=== PATIENT | female | born 1985 | race Caucasian/White ===

== ENCOUNTER 2020-05-10 20:47 | Emergency (ER) | payer SELFPAY ==
[~2020-05-10] VITALS: Ht 162.6 cm; Wt 67.1 kg
[2020-05-10 20:50] VITALS: BP_SYST 142
--- NOTE | 2020-05-10 20:50 | NUR ---
PT TO BED 5 FOR EVALUATION
--- NOTE | 2020-05-10 20:50 | NUR ---
Received patient to ER w/ c/o left flank pain ongoing since Tuesday but symptoms progressively getting worse over past x5 days. Patient h/o kidney stones x15 years ago. Introduced self to patient, positioned for comfort. continue to monitor. Patient resting quietly. No acute distress noted. Vital signs within normal range.
--- NOTE | 2020-05-10 21:00 | NUR ---
# 20 gauge angiocath placed to RAC. Use of asceptic technique. Opsite placed over site. Blood return noted. Blood for lab drawn from site. Flushed with 10 cc of normal saline. No evidence of infiltration noted. Patient tolerated well.
[2020-05-10] MEDS ORDERED: NACL 0.9% 1,000 ML IV ONE (21:15)
[2020-05-10] MEDS ORDERED: KETOROLAC TROMETHAMINE 30 MG VIAL IVP ONE (21:15)
--- NOTE | 2020-05-10 21:15 | NUR ---
Patient medicated as ordered w/ toradol 30mg ivp to RAC. Will observe for any adverse reaction. Bed to low position sr up, continue to monitor.
[2020-05-10 21:27] LABS: BASOPHILS # (AUTO) 0.1 K/uL (0.0-0.2); BASOPHILS % (AUTO) 0.7 % (0.0-2.0); EOSINOPHILS # (AUTO) 0.2 K/uL (0.0-0.4); EOSINOPHILS % (AUTO) 1.6 % (0.0-4.0); HEMATOCRIT 41.2 % (36-48); HEMOGLOBIN 13.8 g/dL (12.0-16.0); LYMPHOCYTES # (AUTO) 3.1 K/uL (1.0-5.5); LYMPHOCYTES % (AUTO) 25.6 % (20.5-51.5); MEAN CORPUSCULAR HEMOGLOBIN 33 pg (27-31); MEAN CORPUSCULAR HGB CONC 34 % (32-36); MEAN CORPUSCULAR VOLUME 98 fL (79.0-98.0); MONOCYTES # (AUTO) 0.7 K/uL (0.0-1.0); MONOCYTES % (AUTO) 5.8 % (1.7-9.3); NEUTROPHILS % (AUTO) 66.3 % (40.0-70.0); PLATELET COUNT (AUTO) 230 K/uL (130-430); RED BLOOD CELL COUNT(AUTO) 4.19 MIL/uL (4.2-6.2); RED CELL DISTRIBUTION WIDTH 12.5 % (9.0-15.0)
--- NOTE | 2020-05-10 21:33 | NUR ---
Patient transported to radiology via wheelchair, accompanied by surgical services tech.
[2020-05-10 21:44] LABS: BILIRUBIN,URINE NEGATIVE (NEGATIVE); BLOOD, URINE NEGATIVE (NEGATIVE); CLARITY/URINE CLEAR (CLEAR); COLOR,URINE YELLOW (YELLOW); GLUCOSE,URINE NEGATIVE (NEGATIVE); KETONES,URINE 1+ (NEGATIVE); LEUKOCYTE ESTERASE ,URINE NEGATIVE (NEGATIVE); NITRITE, URINE NEGATIVE (NEGATIVE); PH,URINE 5.5 (5.0-8.0); PROTEIN URINE NEGATIVE (NEGATIVE); UROBILINOGEN,URINE 0.2 (0.2-1.0)
--- NOTE | 2020-05-10 21:45 | NUR ---
Returned from radiology, back to [facility].
[2020-05-10 22:18] LABS: POTASSIUM 3.9 mmol/L (3.5-5.1)
[2020-05-10 22:19] LABS: CALCIUM 8.7 mg/dL (8.4-11.0)
[2020-05-10 22:20] LABS: CREATININE 0.68 mg/dL (0.55-1.30); TOTAL BILIRUBIN 0.5 mg/dL (0.0-1.0)
[2020-05-10 22:50] VITALS: BP_SYST 100
--- NOTE | 2020-05-10 22:50 | NUR ---
Patient given written and verbal discharge instructions and verbalizes understanding. DR. DAVID LOPEZ MD discussed with patient the results and treatment provided. Patient in stable condition. ID arm band removed. IV catheter removed intact and dressing applied, no active bleeding. Rx of NORCO, FLOMAX, MOTRIN given. Patient educated on pain management and to follow up with PMD. Pain Scale 0/10. Opportunity for questions provided and answered. Medication side effect fact sheet provided.
== END 2020-05-10 22:50 | disposition home or self-care (01) ==
LOC: SED 20:47
DX: N23 Unspecified renal colic (principal); K57.90 Diverticulosis of intestine, part unspecified, without perforation or abscess without bleeding; Z88.6 Allergy status to analgesic agent
CPT/HCPCS: 36415; 74176; 76376; 80053; 81003; 83690; 81025; 85025; 96361; 96374; 99284; J1885; J7030